=== PATIENT | male | born 1940 | race Caucasian/White ===

== ENCOUNTER 2023-07-01 05:33 | Day surgery (SDC) | payer BC ==
[2023-07-01 10:45] VITALS: BMI 26.6
[2023-07-01 11:46] VITALS: TEMP 97.5
[2023-07-01 11:56] VITALS: RESP 20
[2023-07-01 12:09] VITALS: PULSE 68
[2023-07-01 12:20] VITALS: BP 130/60
== END 2023-07-01 12:15 | disposition home or self-care (01) ==
LOC: JASU-ENDO 05:33
PROVIDERS: ATTEND Student in an Organized Health Care Education/Training Program
PROC: 0DB78ZX Excision of Stomach, Pylorus, Via Natural or Artificial Opening Endoscopic, Diagnostic (ICD-10-PCS; 2023-07-01)
PROC: 0DB68ZX Excision of Stomach, Via Natural or Artificial Opening Endoscopic, Diagnostic (ICD-10-PCS; 2023-07-01)
PROC: 0DB48ZX Excision of Esophagogastric Junction, Via Natural or Artificial Opening Endoscopic, Diagnostic (ICD-10-PCS; principal; 2023-07-01 11:30)
DX: K29.50 Unspecified chronic gastritis without bleeding (principal); K44.9 Diaphragmatic hernia without obstruction or gangrene; K20.90 Esophagitis, unspecified without bleeding
CPT/HCPCS: 88305-TC; 88342-TC